=== PATIENT | female | born 1970 ===

== ENCOUNTER 2023-07-16 06:43 | Day surgery (SDC) | payer BC ==
[~2023-07-16 06:43] MED LIST: Sodium Chloride 0.9% 10 ML Syringe FLUSH PRN; Sodium Chloride 0.9% 10 ML Syringe FLUSH SCH
[2023-07-16] MEDS: Lactated Ringers 1,000 ML IV SCH (07:20)
[2023-07-16] MEDS ORDERED: Propofol 200 MG/20 ML SDV ONE ×3 (07:37→08:13)
== END 2023-07-16 08:54 | disposition home or self-care (01) ==
LOC: JD.SDS 06:43
PROVIDERS: ATTEND Student in an Organized Health Care Education/Training Program
DX: Z12.11 Encounter for screening for malignant neoplasm of colon (principal); E11.9 Type 2 diabetes mellitus without complications; J45.909 Unspecified asthma, uncomplicated; E66.01 Morbid (severe) obesity due to excess calories; Z68.42 Body mass index [BMI] 45.0-49.9, adult; Z79.85 Long-term (current) use of injectable non-insulin antidiabetic drugs; Z79.899 Other long term (current) drug therapy; Z91.040 Latex allergy status; Z88.0 Allergy status to penicillin; Z88.8 Allergy status to other drugs, medicaments and biological substances
CPT/HCPCS: 45378; J2704; J7120